=== PATIENT | female | born 1940 | race Caucasian/White ===

== ENCOUNTER 2017-07-17 18:16 | Emergency (ER) | payer MEDICARE ==
[2017-07-17] MEDS ORDERED: ACETAMINOPHEN 1,000 MG/100 ML BTL IVPB ONE (19:19)
[2017-07-17] MEDS ORDERED: SODIUM CHLORIDE 0.9% 500 ML IV ONE (19:19)
--- NOTE | 2017-07-17 19:25 | Emergency Department Record ---
History of Present Illness - General Stated Complaint: PORTILLO Time Seen by Provider: 07/17/17 19:12 Source: Patient, Family Mode of Arrival: Ambulatory Limitations: No limitations - History of Present Illness Initial Comments: 77 yo female presents with a headache that comes and goes. The onset was 5pm yesterday while sitting watching TV. The pain is sharp or prickly and last 2-3 seconds. It is located above and behind your left ear. No changes in hearing. The longest the pain has lasted in about 10 seconds. No dizziness, nausea, vomiting, vision changes. No new speech changes. No coordination changes. No weakness. No walking difficulties. She had a stroke 5 years ago. She has expressive aphasia that is at its baseline but communicates without any limitation. She slept normally through the night without pain waking her. No limitations today of her normal activity. She took one tylenol yesterday. Complaint: Headache -: Days(s) (26 hours) Onset Description: Gradual Location: Left Severity: Moderate Quality: Sharp Consistency: Intermittent (lasting 2-5 seconds) Improves With: Nothing Worsens With: None Associated Symptoms: Other (No other symptoms) Treatments Prior to Arrival: Acetaminophen - Related Data Home Medications Medication Instructions Recorded Confirmed Last Taken Hydrochlorothiazide [Hctz] 12.5 mg PO ASDIR 07/17/17 07/17/17 Unknown Allergies Allergy/AdvReac Type Severity Reaction Status Date / Time acetaminophen [From Vicodin] Allergy Intermediate ALTERED Verified 04/28/15 13: 16 MENTAL STATUS hydrocodone bitartrate Allergy Intermediate ALTERED Verified 04/28/15 13:16 [From Vicodin] MENTAL STATUS Review of Systems Constitutional: Denies: Chills, Fever, Malaise, Weakness Eyes: Denies: Eye discharge, Eye pain, Photophobia, Vision change ENT: Denies: Congestion, Throat pain Respiratory: Denies: Cough, Dyspnea, Hemoptysis, Stridor, Wheezes Cardiovascular: Denies: Chest pain, Palpitations, Syncope Endocrine: Denies: Fatigue Gastrointestinal: Denies: Abdominal pain, Diarrhea, Nausea, Vomiting Genitourinary: Denies: Dysuria Musculoskeletal: Denies: Arthralgia, Back pain, Joint swelling, Myalgia Skin: Denies: Bruising, Change in color, Rash Neurological: Reports: Headache. Denies: Abnormal gait, Confusion, Numbness, Seizure, Tingling, Tremors, Vertigo, Weakness Psychiatric: Denies: Anxiety Hematological/Lymphatic: Denies: Blood Clots, Easy bleeding, Easy bruising, Swollen glands Past Medical History - SOCIAL HISTORY Smoking Status: Former smoker - RESPIRATORY Hx Respiratory Disorders: No - CARDIOVASCULAR Hx Cardio Disorders: Yes Hx Vascular Disease: Yes Comment:: Bypass - NEURO Hx Neuro Disorders: Yes Hx CVA: Yes (2012) Hx Seizures: Yes (w/stroke) - GI Hx GI Disorders: Yes Hx Ulcer: Yes Comment:: hemmorhoids - Hx Genitourinary Disorders: No - ENDOCRINE Hx Endocrine Disorders: No - MUSCULOSKELETAL Hx Musculoskeletal Disorders: No - PSYCH Hx Psych Problems: No - HEMATOLOGY/ONCOLOGY Hx Hematology/Oncology Disorders: No Family Medical History Hx Alcohol Use: Father, Mother Hx Diabetes: Mother Hx Heart Disease: Father Physical Exam - General General Appearance: Alert, Oriented x3, Cooperative, No acute distress, Other ( Well appearing) Limitations: No limitations - Head Head exam: Atraumatic, Normal inspection - Eye Eye exam: Normal appearance, PERRL, EOMI. negative: Conjunctival injection, Nystagmus, Periorbital swelling Pupils: Normal accommodation - ENT ENT exam: Normal exam, Mucous membranes moist Ear exam: Normal external inspection Nasal Exam: Normal inspection Mouth exam: Normal external inspection - Neck Neck exam: Normal inspection, Full ROM. negative: Tenderness - Respiratory Respiratory exam: Normal lung sounds bilaterally. negative: Respiratory distress - Cardiovascular Cardiovascular Exam: Regular rate, Normal rhythm, Normal heart sounds Peripheral Pulses: 2+: Radial (R), Radial (L) - GI/Abdominal GI/Abdominal exam: Soft. negative: Tenderness - Rectal Rectal exam: Deferred - exam: Deferred - Extremities Extremities exam: Normal inspection, Full ROM, Normal capillary refill. negative: Pedal edema, Tenderness - Back Back exam: Reports: Normal inspection, Full ROM. Denies: Muscle spasm, Rash noted, Tenderness - Neurological Neurological exam: Alert, CN II-XII intact, Normal gait, Oriented X3, Other (No PND, normal coordination, no ataxia, no weakness upper extremities, normal gait , ). negative: Altered, Motor sensory deficit - Psychiatric Psychiatric exam: Normal affect, Normal mood - Skin Skin exam: Dry, Intact, Normal color, Warm. negative: Cyanosis, Diaphoretic Stroke Assessment - NIH Stroke Scale 1a. Level of Consciousness: (0) Alert 1b. LOC Questions: (0) Answers Correctly 1c. LOC Commands: (0) Performs Tasks Correctly 2. Best Gaze: (0) Normal 3. Visual: (0) No Visual Loss 4. Facial Palsy: (0) Normal Symmetrical Movement 5a. Motor Arm Left: (0) No Drift 5b. Motor Arm Right: (0) No Drift 6a. Motor Leg Left: (0) No Drift 6b. Motor Leg Right: (0) No Drift 7. Limb Ataxia: (0) Absent 8. Sensory: (0) Normal 9. Best Language: (1) Mild/Moderate Aphasia (This is her baseline, no new or different aphasia) 10. Dysarthria: (0) Normal 11. Extinction/Inattention: (0) No Abnormality NIH Stoke Scale Total: 1 Course - Reevaluation(s) Reevaluation #1: Transient left head pain lasting seconds The patient is at her baseline with expressive aphasia that is mild (hence NIH of 1 - her baseline) 07/17/17 19:26 07/17/17 20:14 The labs were reviewed The CBC,CMP,CRP and SED Rate were all normal 07/17/17 20:50 The HCT was reviewed. Old LEFT infarct, no changes, chronic white matter changes. No changes from prior CT. The patient is at baseline, no historical features to suggest a new neurologic abnormal symptom, atypical PORTILLO lasting seconds. We discussed the results, signs and symptoms to monitor and reasons for an immediate re-evaluation. Medical Decision Making - Lab Data Result diagrams: 07/17/17 19:25 07/17/17 19:25 Disposition Disposition: Discharge Clinical Impression: Headache Qualifiers: Headache type: unspecified Headache chronicity pattern: acute headache Intractability: not intractable Qualified Code(s): R51 - Headache Disposition: Home, Self-Care Condition: (1) Good Instructions: Acute Headache (ED) Additional Instructions: Return of be seen if not improving and immediately if worse Tylenol for pain Call your doctor first of the week for a recheck and to review the ER tests and records. Forms: Patient Portal Access Time of Disposition: 20:53 Quality - Quality Measures Quality Measures: N/A - Blood Pressure Screening Does Patient Have Any of the Following: Active Dx of HTN Blood Pressure Classification: Hypertensive Reading Systolic Measurement: 144 Diastolic Measurement: 77 Screening for High Blood Pressure: Patient Exclusion, Hx of HTN [G9744]
[2017-07-17 19:29] LABS: BASO % 0.4 % (0-6); EOS % 4.2 % (0-6); GRAN % 54.5 % (47-80); HEMATOCRIT 43.8 % (35.0-47.0); HEMOGLOBIN 13.9 gm/dl (11.6-16.0); LYMPH % 31.3 % (16-45); MEAN CELL VOLUME 90.1 fl (81-97); MEAN CORPUSCULAR HEMOGLOBIN 28.6 pg (27-33); MEAN CORPUSCULAR HGB CONC 31.7 g/dl (32-36); MEAN PLATELET VOLUME 10.2 fl (7.4-10.4); MONO % 9.6 % (0-9); PLATELET COUNT 241 K/uL (130-400); RED BLOOD COUNT 4.86 M/uL (3.80-5.40); RED CELL DISTRIBUTION WIDTH 14.3 % (11.5-14.5)
[2017-07-17 19:40] LABS: BLOOD UREA NITROGEN 16 mg/dL (8-23); CREATININE 1.3 mg/dL (0.5-0.9); EST GLOMERULAR FILTRATION RATE 42 mL/min
[2017-07-17 19:42] LABS: GLUCOSE,RANDOM 97 mg/dL (74-109)
[2017-07-17 19:46] LABS: C-REACTIVE PROTEIN < 0.50 mg/dL (<0.5)
[2017-07-17 20:09] LABS: ERYTHROCYTE SEDIMENTATION RATE 11 mm/hr (0-30)
--- NOTE | 2017-07-19 20:13 | CT SCAN REPORT ---
EXAM: CT SCAN HEAD WO CONTRAST HISTORY: HEADACHE STARTING LAST NIGHT. TECHNIQUE: Axial CT scan of the head performed without IV contrast. COMPARISON: Head CT 04/28/15. FINDINGS: No definite acute intracranial hemorrhage identified. No focal mass effect or midline shift evident. Generalized atrophy with chronic-appearing deep white matter changes as before, nonspecific but likely representing some chronic small vessel deep white matter ischemic disease. Large old area of infarction on the left in the temporoparietooccipital region as before. No definite acute infarct or intracranial mass lesion seen. No depressed calvarial fracture is evident. No abnormal opacification of the sinuses or mastoids evident. IMPRESSION: 1. NO DEFINITE ACUTE INTRACRANIAL HEMORRHAGE OR FOCAL MASS EFFECT EVIDENT. 2. 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 3. LARGE OLD AREA OF INFARCTION IN THE LEFT TEMPOROPARIETOOCCIPITAL LOBES BEFORE. JOB NUMBER: [id number] MTDD
== END 2017-07-17 21:05 | disposition home or self-care (01) ==
LOC: ER 18:16
DX: R51 Headache (principal); R47.01 Aphasia; Z87.891 Personal history of nicotine dependence; Z86.73 Personal history of transient ischemic attack (TIA), and cerebral infarction without residual deficits
CPT/HCPCS: 70450; 80048; 85025; 85651; 86140; 96361; 96365; 99284

== ENCOUNTER 2017-08-22 13:14 | Emergency (ER) | payer MEDICARE ==
[2017-08-22 13:40] LABS: URINE APPEARANCE CLEAR; URINE BILIRUBIN NEGATIVE (NEGATIVE); URINE BLOOD TRACE-I (NEGATIVE); URINE COLOR YELLOW; URINE GLUCOSE (UA) NEGATIVE (NEGATIVE); URINE KETONE NEGATIVE (NEGATIVE); URINE LEUKOCYTE ESTERASE SMALL (NEGATIVE); URINE NITRITE NEGATIVE (NEGATIVE); URINE PROTEIN NEGATIVE (NEGATIVE); URINE UROBILINOGEN 0.2 E.U./dL (0.20 - 1.00)
--- NOTE | 2017-08-22 13:42 | Emergency Department Record ---
History of Present Illness - General Chief complaint: Female Urogenital Problem Stated complaint: UTI Time Seen by Provider: 08/22/17 13:20 Source: Patient Mode of Arrival: Ambulatory Limitations: No limitations - History of Present Illness Initial comments: 77 yo female presents with discomfort with urination for over a week. She has burning with urination. No fever, chills, nausea, vomiting, back or abdominal pain. She is going more frequently. No hematuria. She has normal appetite. No nausea or vomiting. No diarrhea. She saw her PA about 5 days ago and her urine in the office was unremarkable. No flank pain. MD Complaint: Dysuria Onset/Timin -: Days(s) Location: Other Quality: Burning Consistency: Intermittent Improves with: None Worsens with: Urination Associated Symptoms: Dysuria - Related Data Previous Rx's Medication Instructions Recorded Nitrofurantoin Monohyd/M-Cryst 100 mg PO BID #14 capsule 08/22/17 [Macrobid 100 mg Capsule] Allergies Allergy/AdvReac Type Severity Reaction Status Date / Time No Known Drug Allergies Allergy Verified 08/22/17 13:29 Travel Screening - Travel/Exposure Within Last 30 Days Have you traveled within the last 30 days?: No - Travel/Exposure Within Last Year Have you traveled outside the [place] in the last year?: No - Additonal Travel Details Have you been exposed to anyone with a communicable illness?: No - Travel Symptoms Symptom Screening: None Review of Systems Constitutional: Denies: Chills, Fever, Malaise, Weakness Eyes: Denies: Eye discharge ENT: Denies: Congestion, Throat pain Respiratory: Denies: Cough, Dyspnea Cardiovascular: Denies: Chest pain, Syncope Endocrine: Denies: Fatigue Gastrointestinal: Denies: Abdominal pain, Diarrhea, Nausea, Vomiting Genitourinary: Reports: Dysuria, Frequency, Urgency. Denies: Abnormal menses, Discharge, Hematuria, Incontinence, Retention Musculoskeletal: Denies: Arthralgia, Back pain, Myalgia Skin: Denies: Bruising, Change in color, Rash Neurological: Denies: Numbness, Weakness Psychiatric: Denies: Anxiety Hematological/Lymphatic: Denies: Blood Clots, Easy bleeding, Easy bruising Past Medical History - SOCIAL HISTORY Smoking Status: Former smoker Alcohol Use: None Drug Use: None - RESPIRATORY Hx Respiratory Disorders: No - CARDIOVASCULAR Hx Cardio Disorders: Yes Hx Vascular Disease: Yes Comment:: Bypass - NEURO Hx Neuro Disorders: Yes Hx CVA: Yes (2012) Hx Seizures: Yes (w/stroke) - GI Hx GI Disorders: Yes Hx Ulcer: Yes Comment:: hemmorhoids - Hx Genitourinary Disorders: No - ENDOCRINE Hx Endocrine Disorders: No - MUSCULOSKELETAL Hx Musculoskeletal Disorders: No - PSYCH Hx Psych Problems: No - HEMATOLOGY/ONCOLOGY Hx Hematology/Oncology Disorders: No Family Medical History Any Significant Family History?: Yes Hx Alcohol Use: Father, Mother Hx Diabetes: Mother Hx Heart Disease: Father Physical Exam - General General Appearance: Alert, Oriented x3, Cooperative, No acute distress Limitations: No limitations - Head Head exam: Normal inspection - Eye Eye exam: Normal appearance, PERRL. negative: Conjunctival injection, Scleral icterus - ENT ENT exam: Normal exam, Mucous membranes moist Ear exam: Normal external inspection Nasal Exam: Normal inspection Mouth exam: Normal external inspection - Neck Neck exam: Normal inspection - GI/Abdominal GI/Abdominal exam: Soft, Normal bowel sounds. negative: Distended, Guarding, Rebound, Rigid, Tenderness - Extremities Extremities exam: Normal inspection - Back Back exam: Denies: CVA tenderness (R), CVA tenderness (L), Paraspinal tenderness , Tenderness - Neurological Neurological exam: Alert, Oriented X3 - Psychiatric Psychiatric exam: Normal affect, Normal mood - Skin Skin exam: Dry, Intact, Normal color, Warm Course Vital Signs 08/22/17 13:31 Temperature 98.5 F Pulse Rate 70 Respiratory 18 Rate Blood Pressure 137/74 Pulse Ox 97 - Reevaluation(s) Reevaluation #1: 08/22/17 13:53 UA is consistent with UTI Macrobid provided Patient informed culture will be sent and to follow up with the PCP this week We discussed reasons to return Disposition Disposition: Discharge Clinical Impression: Urinary tract infection Disposition: Home, Self-Care Condition: (1) Good Instructions: Urinary Tract Infection in Women (ED) Additional Instructions: A culture has been sent of the urine. The results will be available in 2-3 days. This checks to see if the Macrobid should work. Return if pain, worse, fever, vomiting or concerns. Prescriptions: Nitrofurantoin Monohyd/M-Cryst [Macrobid 100 mg Capsule] 100 mg PO BID #14 capsule Forms: Patient Portal Access Time of Disposition: 13:55 Quality - Quality Measures Quality Measures: N/A - Blood Pressure Screening Does Patient Have Any of the Following: Active Dx of HTN Blood Pressure Classification: Pre-Hypertensive BP Reading Systolic Measurement: 137 Diastolic Measurement: 74 Screening for High Blood Pressure: Patient Exclusion, Hx of HTN [G9744]
[2017-08-22 13:49] LABS: URINE BACTERIA 4+; URINE WBC 21 - 35 (0-2/hpf)
[2017-08-22] MEDS ORDERED: NITROFURANTOIN MONO 100 MG CAPSULE PO ONE (13:52)
== END 2017-08-22 14:09 | disposition home or self-care (01) ==
LOC: ER 13:14
DX: N39.0 Urinary tract infection, site not specified (principal); R31.29 Other microscopic hematuria; I10 Essential (primary) hypertension; Z87.891 Personal history of nicotine dependence
CPT/HCPCS: 81001; 99282